=== PATIENT | female | born 1975 | race Hispanic/Latino ===

== ENCOUNTER 2020-08-27 03:48 | Emergency (ER) | payer BC ==
[~2020-08-27] VITALS: Ht 157.5 cm; Wt 54.5 kg
[~2020-08-27 03:48] MED LIST: TEGRETOL200 MG PO; WELLBUTRIN SR150 MG PO
[2020-08-27 04:00] VITALS: BP 108/55
[2020-08-27] MEDS ORDERED: CARBAMAZEPINE100 MG PO (04:50)
[2020-08-27] MEDS ORDERED: MIDODRINE10 MG PO (04:50)
== END 2020-08-27 04:20 | disposition home or self-care (01) | DRG 312 ==
LOC: ED 04:15
DX: I95.1 Orthostatic hypotension (principal); G50.0 Trigeminal neuralgia

== ENCOUNTER 2022-08-31 06:59 | Day surgery (SDC) | payer BC ==
[~2022-08-31] VITALS: Ht 177.8 cm; Wt 59.0 kg
[~2022-08-31 06:59] MED LIST changes: +CARBAMAZEPINE100 MG PO; +MAGNESIUM 400 M1 TAB PO; +MIDODRINE10 MG PO; +MULTIVITAMI9 PO; +VENLAFAXINE75 M2 PO; +VITAMIN D1000 UNIT PO
[2022-08-31 09:43] VITALS: BP 110/72
== END 2022-08-31 10:03 | disposition home or self-care (01) | DRG 951 ==
LOC: ENDO 06:59
PROVIDERS: ATTEND Internal Medicine Gastroenterology
PROC: 0DJD8ZZ Inspection of Lower Intestinal Tract, Via Natural or Artificial Opening Endoscopic (ICD-10-PCS; principal; 2022-08-31)
DX: Z12.11 Encounter for screening for malignant neoplasm of colon (principal); K64.8 Other hemorrhoids